=== PATIENT | male | born 1995 | race Caucasian/White ===

== ENCOUNTER 2019-09-19 11:17 | Emergency (ER) | payer SELFPAY ==
[2019-09-19 11:28] VITALS: BMI 39.3
[2019-09-19 11:31] VITALS: BP 194/111; PULSE 103; RESP 18; TEMP 36.7; O2SAT 98
--- NOTE | 2019-09-19 11:40 | ED_ITS ---
HPI - Dental/Oral General: Chief complaint: Dental/Oral Stated complaint: DENTAL AND HEAD PAIN Time Seen by Provider: 09/19/19 11:32 History of Present Illness: HPI Narrative: Patient comes in complaining from pain this morning in his mouth he woke up with an upper left hand incisor is painful and then lower left molar is painful denies any abscess denies any swelling says he has a history of chronic caries and has not been able get to the dentist. MD Complaint: tooth pain Teeth map: 1. Broken tooth chronic 2. Broken tooth chronic 3. Multiple dental caries Onset (ago): unknown Duration: constant Severity: moderate Severity scale (1-10): 5 Relieving factors: nothing Exacerbating factors: cold and heat Context: history of dental caries and poor dental care Associated symptoms: Reports no associated symptoms; Denies fever(s) Treatment prior to arrival: oral analgesic (Tylenol and ibuprofen) Review of Systems Const: Denies: fever(s), chills or body aches Eyes: Denies: change in vision or blurry vision ENMT: Reports: dental pain (Has dental pain multiple areas for dental hygiene patient is not able get to the dentist); Denies: throat pain or nasal congestion Card: Denies: chest pain or dyspnea on exertion Resp: Denies: dyspnea, productive cough or non-productive cough GI: Denies: abdominal pain, nausea or vomiting : Denies: difficulty urinating Musc: Denies: extremity pain Skin/Breast: Denies: rash Neuro: Denies: headache(s) Psych: Denies: anxiety or depression Juan/Lymph: Denies: easy bruising PFSH ED PFSH: Social History (Updated 09/19/19 @ 11:31 by Janina Ambrose RN) Smoking and tobacco status: current every day smoker Physical Exam Const: COMMON NORMALS: no acute distress, average body habitus and patient oriented x3 HENMT: COMMON NORMALS: normocephalic HEAD & SCALP: normal to inspection and normocephalic FACE & SINUS: normal facial exam TEETH & GINGIVA IMAGES: 1. Broken tooth 2. Broken tooth and dental caries 3. Multiple caries Eye: COMMON NORMALS: conjunctivae normal GENERAL EYE: appearance normal, both eyes and all related structures CONJUNCTIVA: Yes conjunctivae normal Neck/C-Spine: COMMON NORMALS: no JVD Chest: COMMONS NORMALS: normal inspection of the chest Resp: COMMON NORMALS: normal respiratory effort Cardio: COMMON NORMALS: no JVD GI: INSPECTION: Yes normal to inspection Extremity: COMMON NORMALS: normal to inspection and full ROM Neuro: COMMON NORMALS: patient oriented x3 Course Vital Signs: Vital signs: Vital Signs Temperature 98.1 F 09/19/19 11:31 Pulse Rate 98 09/19/19 12:06 Respiratory Rate 18 09/19/19 12:06 Blood Pressure 181/101 09/19/19 12:06 Pulse Oximetry 99 09/19/19 12:06 Discharge Plan Discharge Patient Disposition: Home, Self-Care Clinical Impression: Dental caries Condition: Stable Prescriptions: New clindamycin HCl 300 mg capsule 300 mg PO TID 7 Days Qty: 21 RF: 0 tramadol 50 mg tablet 50 mg PO Q6H PRN (Reason: pain) Qty: 10 RF: 0 Discharge Orders: Discharge Order (Routine); Ordered 09/19/19 Ordered By: Rajiv Lopez Discharge Diet: Usual diet Discharge Activity: Resume usual activity Patient Instructions: Dental Caries (ED) Activity Restrictions/Additional Instructions: Follow-up with medical provider as directed. Take medications as prescribed. Return to the ER or your medical provider if condition worsens. Please read and understand discharge instructions. If any questions ask please. Follow-up dentist as soon as possible Discharge Date/Time: 09/19/19 12:14 Coding Level of Care Code ED [employer] for Helio Fwd Exam Comprehensive
[2019-09-19 12:06] VITALS: BP 181/101; PULSE 98; RESP 18; O2SAT 99
== END 2019-09-19 12:14 | disposition home or self-care (01) ==
PROVIDERS: Emergency Provider Nurse Practitioner Family
DX: K02.9 Dental caries, unspecified (principal); F17.210 Nicotine dependence, cigarettes, uncomplicated
CPT/HCPCS: 12345; 99281